=== PATIENT | female | born 1950 | race Caucasian/White ===

== ENCOUNTER → 2023-11-20 14:18 | Outpatient (REF) | payer MEDICARE, OTHER, SELFPAY | LOC: HWRAD 14:18 | PROVIDERS: ATTENDING PHYSICIAN Otolaryngology; FAMILY PHYSICIAN Internal Medicine | DX: E04.0 Nontoxic diffuse goiter (principal) | CPT/HCPCS: 76536 ==

== ENCOUNTER → 2023-11-27 13:00 | Outpatient (REF) | payer MEDICARE, OTHER, SELFPAY ==
[2023-11-27 17:54] LABS: Free T3 3.55 pg/ml (2.77-5.27); Free T4 0.82 ng/dl (0.78-2.19)
[2023-11-27 18:08] LABS: TSH 4.14 uIU/ml (0.47-4.68)
== END ==
LOC: HWLAB 13:00
PROVIDERS: ATTENDING PHYSICIAN Otolaryngology; FAMILY PHYSICIAN Internal Medicine
DX: E04.0 Nontoxic diffuse goiter (principal); E07.9 Disorder of thyroid, unspecified
CPT/HCPCS: 36415; 84439; 84443; 84481

== ENCOUNTER → 2023-12-17 12:16 | Outpatient (REF) | payer MEDICARE, OTHER, SELFPAY | LOC: HWWDC 12:16 | PROVIDERS: ATTENDING PHYSICIAN Internal Medicine | DX: Z12.31 Encounter for screening mammogram for malignant neoplasm of breast (principal) | CPT/HCPCS: 77063; 77067 ==

== ENCOUNTER 2024-02-03 16:04 | Emergency (ER) | payer MEDICARE, OTHER, SELFPAY ==
[2024-02-03 16:09] VITALS: BP 137/74
[2024-02-03 16:36] VITALS: BP 132/73
[2024-02-03 16:38] VITALS: BMI 29.6
--- NOTE | 2024-02-03 16:38 | ED.GENMED ---
History of Present Illness
General
Chief Complaint: Fainting Sensation
Source: patient
Exam Limitations: none
Time Seen by Provider: 02/03/24 16:38
Nursing documentation reviewed up to this point in time: agreed with
Travel History
Have you had any contact with someone who has COVID-19?: No
Do you have any symptoms of coronavirus? Fever > 100 degrees, chills, cough, shortness of breath, sore throat, loss of taste or smell, muscle aches, or headache?: No
History of Present Illness
History of Present Illness:
The patient is a 73-year-old female who reports that earlier this morning, she felt as though she was going to pass out. Patient reports she was driving at this time and had to pan puller. After few minutes, she felt better and was able to drive to
her daughter's house. Patient reports that it is not unusual for her to get low blood pressure from time to time. She denies any new medication adjustments. She reports that she did not have concerns until around 3:15 when she developed pain
across her chest and left jaw area. Patient reports she had been relaxing at the time. Patient reports that it lasted about an hour and is now gone completely. She denies any shortness of breath, nausea, vomiting and fever. Patient reports she
played pickle ball for an hour earlier this morning and felt fine doing it.
Past History
Past History
ED Past Medical History: Arrthythmia (SVT), Cancer (Skin Squamous cell), COPD, CVA, HTN, Hypothyroidism, Psychiatric (Anxiety, Depression) and Other ( Diverticultis, TIA, back pain, migraines)
ED Past Surgical History: Appendectomy, Bowel resection, Cholecystectomy, Gynecological (Total Hysterectomy), Orthopedic (Back surgery X 3, Left shoulder surgery. 2 foot surgery) and Other (Hernia repair)
Social History
Tobacco: Former smoker
Alcohol: Occasional
Personal:
Living: with family
Employment: Employed
Family History
Family History: Other (Father with CABG and carotid disease mother with pancreatic cancer)
Review of Systems
Review of Systems
Allergies reviewed?: Yes
All Other Systems: ROS reviewed and negative except as documented in HPI and ROS
Constitutional: Reports fatigue
EENT: Reports no symptoms
Respiratory: Reports no symptoms
Cardiac: Reports chest pain
ABD/GI: Reports no symptoms
: Reports no symptoms
Musculoskeletal: Reports no symptoms
Skin: Reports no symptoms
Neurological: Reports no symptoms
Endocrine: Reports no symptoms
Hematologic/Lymphatic: Reports no symptoms
Psychiatric: Reports no symptoms
Phy Exam
Physical Exam
Physical Exam:
Physical Exam
General: no apparent distress, not acutely ill, well and comfortable appearing
Neck: supple. no meningeal signs. normal psoterior pharynx
Heart: s1/s2 regular rate and rhythm, no murmur. equal radial pulses. When patient takes a deep breath, she has no reproducible chest pain
Lungs: no acute respiratory distress. clear bilaterally
Abdomen: normal bowel sounds. not tender. no CVAT
Neuro: alert and oriented. no focal neurological deficits
Skin: no rash
Psychiatric: well kept. interactive and cooperative
Extremities: no edema. no calf tenderness. negative homans. good distal pulses
Course
Orders/Labs/Results
Orders:
Orders
02/03/24 16:13
Electrocardiogram (*1) Urgent
Reason for Study: Syncope
EKG- Treatment ONCE
02/03/24 16:55
Complete Blood Count/With Diff Urgent
Comprehensive Metabolic Panel Urgent
Magnesium Urgent
Troponin I Urgent
02/03/24 16:56
Add On- LAB Urgent
Tests Added?: magnesium
02/03/24 17:19
Albuterol Sulfate [Ventolin Nebules] 10 mg INH R NOW STA
02/03/24 17:47
0.9% Sodium Chloride 1000 ml [Nss] 1,000 ml IV BOLUS
02/03/24 18:31
0.9% Sodium Chloride 500 ml [Nss] 500 ml IV BOLUS
02/03/24 19:02
Troponin I Urgent
Abnormal Lab Results
02/03/24
16:55
RBC 4.05 L 10^6/uL
(4.20-5.40)
Hct 35.8 L %
(37.0-47.0)
MCH 32.1 H pg
(27.0-31.0)
Absolute Monos (auto) 0.8 H 10^3/uL
(0.1-0.6)
Monocytes % 11.9 H %
(1.7-9.3)
Sodium 131 L mmol/L
(135-145)
BUN 28 H mg/dl
(7-17)
Creatinine 1.7 H mg/dL
(0.6-1.0)
Calcium 10.8 H mg/dl
(8.4-10.2)
AST 41 H U/L
(14-36)
02/03/24 16:55
02/03/24 16:55
Vital Signs
Initial and Last Documented VS:
Initial Vital Signs
Temp Pulse Resp BP Pulse Ox
98.1 F 83 16 137/74 97
02/03/24 16:09 02/03/24 16:09 02/03/24 16:09 02/03/24 16:09 02/03/24 16:09
Last Documented Vital Signs
Temp Pulse Resp BP Pulse Ox
98.1 F 83 16 146/73 96
02/03/24 16:09 02/03/24 16:09 02/03/24 16:09 02/03/24 19:00 02/03/24 19:00
MDM/Problems Addressed
Differential Diagnosis Includes:
Acute coronary syndrome, PE, musculoskeletal chest pain, gastritis
MDM/Problems Addressed:
Patient presents with acute on chronic lightheadedness and acute chest pain
Chronic conditions affecting care: Arrhythmia
Acute Exacerbation and/or Progression of Chronic Illness: Arrhythmia
*Pulse Oximetry
Patient hypoxic: no
*EKG
Interpreted by ED Provider?: Yes
Interpretation: abnormal
Comparison EKG: no changes
Rate: normal
Rhythm: sinus
Supply: left axis deviation
Interval: long QT
QRS Pattern: left vent hypertrophy
Ischemia: non-specific ST changes
*Reference Archivist Interpretation
Rate: normal
Interpretation: normal
Rhythm: sinus
*Critical Care Note
Total Time (30-74mins, 75-104mins- exclusive of procedures): Not Applicable
Data Reviewed
Review of Other/Old Records Reveals: Discharge Summary (Discharge summary reviewed from 08/2023 which showed that patient was admitted for A-fib)
Source: patient and family
Patient Management
Social determinants of health affecting care: Living situation
Escalation/DeEscalation of care consider admission/obs:
Patient has been resting comfortably for hours without any chest pain. She has 2 normal troponins so it is doubtful she is acute coronary syndrome. There is no sign of pneumonia on lung exam. It is doubtful she has a PE because she has had no
chest pain or shortness of breath here.
ED Attending Note
-
Portions of this chart may have been created with voice recognition software.� Occasional wrong word or��sound alike� substitutions may have occurred due to the inherent limitations of voice recognition software.
Discharge Plan
Departure
Patient Disposition: Home (Routine Discharge)
Date of Disposition: 02/03/24
Time of Disposition: 20:03
Patient with high blood pressure during this ER visit?: Yes
Condition: Good
Covid-19: Not Applicable
Discharge Problem:
acute dehydration, Chest pain in adult
Instructions: Dehydration, Adult ED, Chest Pain DCA Follow Up
Prescriptions:
No Action
lisinopril 5 MG tablet
5 mg PO DAILY
ibuprofen 200 MG tablet
400 mg PO Q6HPRN PRN (Reason: HIP PAIN)
acetaminophen [Tylenol Extra Strength] 500 MG tablet
1,000 mg PO Q6HPRN PRN (Reason: pain, fever)
Centrum Silver Women 1 EACH tablet
1 tab PO DAILY
L.acidoph, paracasei,B. lactis 1 EACH capsule
1 ea PO QPM
albuterol sulfate 90 mcg/actuation Hfa Aerosol Inhaler
1 puff INHALATION Q6H PRN (Reason: dyspnea/wheezing)
fluticasone furoate-vilanterol [Breo Ellipta] 100-25 mcg/dose Blister With Device
1 inh INHALATION DAILY
carvedilol 6.25 mg Tablet
6.25 mg PO BID
trazodone 50 mg Tablet
25 mg PO HS
cetirizine [Zyrtec] 10 mg Tablet
10 mg PO DAILYPRN PRN (Reason: allergies)
famotidine [Pepcid] 20 mg Tablet
20 mg PO DAILYPRN PRN (Reason: GERD)
sertraline 50 mg Tablet
100 mg PO BID
lisinopril 2.5 mg Tablet
2.5 mg PO HS
omega 1-pth-vbs-fish oil [Fish Oil] 1,000 mg (120 mg-180 mg) Capsule
1 cap PO BID
Eliquis 5 mg Tablet
5 mg PO BID
Evert Pro
750 mg PO QPM
L-Glutalthione
250 mg PO QPM
latanoprost 0.005 % Drops
1 drp OPHTHALMIC (EYE) QPM
Referrals:
NONE,* [Family Provider] -
Activity Restrictions/Additional Instructions:
Follow-up with your primary care doctor within 1 - 2 weeks to have your creatinine (kidney blood test) rechecked to make sure it has normalized. The abnormal creatinine could be due to dehydration.
Interventions
Interventions:
*Risk Screen - Suicide Last Done: 02/03/24 16:39
*General Assessment Last Done: 02/03/24 16:39
*Neglect/Abuse Screening Last Done: 02/03/24 19:07
ED- Fall Risk Assessment Last Done: 02/03/24 19:06
*ED COVID-19 Vaccine History Last Done: 02/03/24 16:09
ED- Cardiac Assessment Last Done: 02/03/24 16:39
ED- Neurological Assessment Last Done: 02/03/24 16:39
Discharge Date and Time
Print Language: YI
[2024-02-03 17:05] LABS: % Basophils 0.3 % (0-2); % Eosinophils 0.8 % (0-6); % Immature Granulocytes 0.2 % (0-0.5); % Lymphocytes 25.5 % (20.5-51.1); % Monocytes 11.9 % (1.7-9.3); % Neutrophils 61.3 % (42.2-75.2); Absolute Eosinophils 0.1 10^3/uL (0-0.7); Absolute Lymphocytes 1.7 10^3/uL (1.2-3.4); Absolute Monocytes 0.8 10^3/uL (0.1-0.6); Hematocrit 35.8 % (37.0-47.0); Mean Corp Hgb Conc. 36.3 g/dL (33.0-37.0); Mean Corpuscular Hgb 32.1 pg (27.0-31.0); Mean Corpuscular Volume 88.4 fL (81.0-99.0); Nucleated Red Blood Cells % 0 %; Platelet Count 207 10^3/uL (130-400); Red Blood Cell Count 4.05 10^6/uL (4.20-5.40); Red Cell Dist. Width 12.8 % (11.5-14.5); White Blood Cell Count 6.5 10^3/uL (4.8-10.8)
[2024-02-03 17:20] LABS: ALT (SGPT) 26 U/L (0-35); AST (SGOT) 41 U/L (14-36); Albumin 4.9 g/dl (3.5-5.0); Alkaline Phosphatase 85 U/L (38-126); Blood Urea Nitrogen 28 mg/dl (7-17); Calcium 10.8 mg/dl (8.4-10.2); Carbon Dioxide 23 mmol/L (22-30); Chloride 99 mmol/L (98-107); Estimated Creatinine Clearance 33 ml/min; Glucose 97 mg/dl (70-99); Potassium 5.1 mmol/L (3.5-5.1); Sodium 131 mmol/L (135-145); Total Bilirubin 0.7 mg/dl (0.2-1.3); Total Protein 7.6 g/dl (6.3-8.2); eGFR 31.47
[2024-02-03 17:31] LABS: Troponin I < 0.012 ng/ml
[2024-02-03 17:32] LABS: Magnesium 1.9 mg/dl (1.6-2.3)
[2024-02-03 17:45] VITALS: BP 96/83
[2024-02-03] MEDS: NSS 1000 IV (17:51)
[2024-02-03 18:00] VITALS: BP 134/58
[2024-02-03 19:00] VITALS: BP 146/73
[2024-02-03] MEDS: NSS 500 IV (19:01)
[2024-02-03 19:33] LABS: Troponin I < 0.012 ng/ml
[2024-02-03 20:00] VITALS: BP 142/74
== END 2024-02-03 20:34 | disposition home or self-care (01) ==
LOC: EMR 16:04
PROVIDERS: EMERGENCY PHYSICIAN Emergency Medicine
DX: E86.0 Dehydration (principal); R07.89 Other chest pain; I47.10 Supraventricular tachycardia, unspecified; J44.9 Chronic obstructive pulmonary disease, unspecified; I10 Essential (primary) hypertension; E03.9 Hypothyroidism, unspecified; F41.8 Other specified anxiety disorders; Z85.828 Personal history of other malignant neoplasm of skin; Z86.73 Personal history of transient ischemic attack (TIA), and cerebral infarction without residual deficits; Z87.891 Personal history of nicotine dependence; Z90.49 Acquired absence of other specified parts of digestive tract; Z90.710 Acquired absence of both cervix and uterus
CPT/HCPCS: 99283; 96360; 96361; 80053; 83735; 84484; 85025; 93005

== ENCOUNTER → 2024-02-19 16:10 | Outpatient (REF) | payer MEDICARE, OTHER, SELFPAY | LOC: RAD 16:10 | PROVIDERS: ATTENDING PHYSICIAN Internal Medicine | DX: R05.3 Chronic cough (principal) | CPT/HCPCS: 71046 ==

== ENCOUNTER 2024-05-09 21:42 | Emergency (ER) | payer MEDICARE, OTHER, SELFPAY ==
[2024-05-09 21:44] VITALS: BP 144/80
[2024-05-09 21:59] LABS: % Basophils 0.6 % (0-2); % Eosinophils 1.7 % (0-6); % Immature Granulocytes 0.2 % (0-0.5); % Lymphocytes 40.3 % (20.5-51.1); % Neutrophils 48.2 % (42.2-75.2); Absolute Eosinophils 0.1 10^3/uL (0-0.7); Absolute Lymphocytes 2.1 10^3/uL (1.2-3.4); Absolute Monocytes 0.5 10^3/uL (0.1-0.6); Absolute Neutrophils 2.6 10^3/uL (1.4-6.5); Hematocrit 35.5 % (37.0-47.0); Hemoglobin 12.6 g/dL (12.0-16.0); Mean Corp Hgb Conc. 35.5 g/dL (33.0-37.0); Mean Corpuscular Hgb 31.5 pg (27.0-31.0); Mean Corpuscular Volume 88.8 fL (81.0-99.0); Mean Platelet Volume 9.1 fL (7.4-10.4); Nucleated Red Blood Cells % 0 %; Platelet Count 194 10^3/uL (130-400); White Blood Cell Count 5.3 10^3/uL (4.8-10.8)
[2024-05-09 22:33] LABS: Urine Albumin Negative (Neg - Trace); Urine Bilirubin Negative (Negative); Urine Character Clear (Clear); Urine Color Yellow; Urine Glucose Negative (Negative); Urine Ketone Negative (Negative); Urine Leukocyte Trace (Negative); Urine Nitrite Negative (Negative); Urine Occult Blood Negative (Negative); Urine Specific Gravity 1.005 (<1.030); Urine Urobilinogen Negative (Neg - 1+)
[2024-05-09 22:39] LABS: ALT (SGPT) 28 U/L (0-35); AST (SGOT) 36 U/L (14-36); Albumin 4.5 g/dl (3.5-5.0); Alkaline Phosphatase 71 U/L (38-126); Blood Urea Nitrogen 19 mg/dl (7-17); Calcium 9.7 mg/dl (8.4-10.2); Carbon Dioxide 24 mmol/L (22-30); Chloride 101 mmol/L (98-107); Glucose 107 mg/dl (70-99); Potassium 4.1 mmol/L (3.5-5.1); Sodium 133 mmol/L (135-145); Total Bilirubin 0.4 mg/dl (0.2-1.3); Total Protein 6.7 g/dl (6.3-8.2); eGFR 52.73
[2024-05-09 22:47] LABS: Urine Red Blood Cell 0-2 /HPF (0-2); Urine White Cell 0-2 /HPF (0-5)
[2024-05-10] MEDS: PERCOCET 5/325 1 TABLET PO (00:18)
[2024-05-10 00:19] VITALS: BMI 29.1
[2024-05-10 00:21] VITALS: BP 140/70
--- NOTE | 2024-05-10 01:02 | ED.GENMED ---
History of Present Illness
General
Chief Complaint: Flank Pain
Source: patient
Exam Limitations: none
Time Seen by Provider: 05/10/24 00:00
Nursing documentation reviewed up to this point in time: agreed with
History of Present Illness
History of Present Illness:
Patient presents to ED secondary to persistent left flank pain over the past 3 days. Denies fever or chills. Denies trauma. Denies nausea, vomiting, or diarrhea. Denies loss of appetite. Denies back pain. Denies difficulty urination. Denies
previous history of similar symptoms. However, there is family history of kidney stones.
Past History
Past History
ED Past Medical History: Arrthythmia (SVT), Cancer (Skin Squamous cell), COPD, CVA, HTN, Hypothyroidism, Psychiatric (Anxiety, Depression) and Other ( Diverticultis, TIA, back pain, migraines)
ED Past Surgical History: Appendectomy, Bowel resection, Cholecystectomy, Gynecological (Total Hysterectomy), Orthopedic (Back surgery X 3, Left shoulder surgery. 2 foot surgery) and Other (Hernia repair)
Social History
Tobacco: Former smoker
Alcohol: Occasional
Personal:
Living: with family
Employment: Employed
Family History
Family History: Other (Father with CABG and carotid disease mother with pancreatic cancer)
Review of Systems
Review of Systems
Allergies reviewed?: Yes
All Other Systems: ROS reviewed and negative except as documented in HPI and ROS
Constitutional: Reports no symptoms; Denies fever
ABD/GI: Reports no symptoms; Denies nausea or vomiting
: Reports flank pain; Denies frequency or difficulty voiding
Musculoskeletal: Reports no symptoms
Skin: Reports no symptoms
Neurological: Reports no symptoms
Phy Exam
Physical Exam
Physical Exam:
Physical Exam
General: mild painful distress, not acutely ill. afebrile.
Head: nc/at. eomi
Neck: supple. no meningeal signs.
Heart: s1/s2 regular rate and rhythm, no murmur. equal radial pulses.
Lungs: no acute respiratory distress. clear bilaterally
Abdomen: normal bowel sounds. mild left flank tenderness to palpation. no distention
Back: no cva tenderness.
Neuro: alert and oriented. no focal neurological deficits
Skin: no rash
Psychiatric: well kept. interactive and cooperative
Extremities: no edema. no calf tenderness.
Course
Orders/Labs/Results
Orders:
Orders
05/09/24 21:54
CMP [Comprehensive Metabolic Panel] Urgent
Complete Blood Count/With Diff Urgent
05/09/24 22:26
Urinalysis Urgent
Date Specimen was Collected: 05/09/24
Time Specimen was Collected: 21:47
Urine Microscopic Urgent
Date Specimen was Collected: 05/09/24
Time Specimen was Collected: 21:47
05/10/24 00:17
CT Abd/pel Without Iv Or Oral Urgent
Comment:
Reason For Exam: left flank pain
Oxycodone/Acetaminophen [Percocet 5/325] 1 tablet PO NOW STA
Abnormal Lab Results
05/09/24 05/09/24
21:54 22:26
RBC 4.00 L 10^6/uL
(4.20-5.40)
Hct 35.5 L %
(37.0-47.0)
MCH 31.5 H pg
(27.0-31.0)
Sodium 133 L mmol/L
(135-145)
BUN 19 H mg/dl
(7-17)
Creatinine 1.1 H mg/dL
(0.6-1.0)
Glucose 107 H mg/dl
(70-99)
Ur Leukocyte Esterase Trace A
(Negative)
05/09/24 21:54
05/09/24 21:54
Vital Signs
Initial and Last Documented VS:
Initial Vital Signs
Temp Pulse Resp BP Pulse Ox
97.9 F 82 22 144/80 98
05/09/24 21:44 05/09/24 21:44 05/09/24 21:44 05/09/24 21:44 05/09/24 21:44
Last Documented Vital Signs
Temp Pulse Resp BP Pulse Ox
97.9 F 56 16 141/59 95
05/09/24 21:44 05/10/24 02:44 05/10/24 02:44 05/10/24 02:44 05/10/24 02:44
MDM/Problems Addressed
MDM/Problems Addressed:
Pt with an unremarkable workup in ED, including blood work and CT scan. Pain adequately controlled with medication. Discussed differential diagnosis, including musculoskeletal pain, viral, vs renal colic. Advised rest along with pcp f/u, or return
to ED with worsening symptoms.
*Critical Care Note
Total Time (30-74mins, 75-104mins- exclusive of procedures): Not Applicable
ED Attending Note
-
Portions of this chart may have been created with voice recognition software.� Occasional wrong word or��sound alike� substitutions may have occurred due to the inherent limitations of voice recognition software.
Discharge Plan
Departure
Patient Disposition: Home (Routine Discharge)
Date of Disposition: 05/10/24
Time of Disposition: 02:44
Patient with high blood pressure during this ER visit?: Yes
Condition: Good
Discharge Problem:
Flank pain
Instructions: Flank Pain (DC)
Prescriptions:
New
oxycodone-acetaminophen [Percocet] 5-325 mg Tablet
1 tab PO Q6HPRN PRN (Reason: pain) Qty: 12 0RF
No Action
lisinopril 5 MG tablet
5 mg PO DAILY
ibuprofen 200 MG tablet
400 mg PO Q6HPRN PRN (Reason: HIP PAIN)
acetaminophen [Tylenol Extra Strength] 500 MG tablet
1,000 mg PO Q6HPRN PRN (Reason: pain, fever)
Centrum Silver Women 1 EACH tablet
1 tab PO DAILY
L.acidoph, paracasei,B. lactis 1 EACH capsule
1 ea PO QPM
albuterol sulfate 90 mcg/actuation Hfa Aerosol Inhaler
1 puff INHALATION Q6H PRN (Reason: dyspnea/wheezing)
fluticasone furoate-vilanterol [Breo Ellipta] 100-25 mcg/dose Blister With Device
1 inh INHALATION DAILY
carvedilol 6.25 mg Tablet
6.25 mg PO BID
trazodone 50 mg Tablet
25 mg PO HS
cetirizine [Zyrtec] 10 mg Tablet
10 mg PO DAILYPRN PRN (Reason: allergies)
famotidine [Pepcid] 20 mg Tablet
20 mg PO DAILYPRN PRN (Reason: GERD)
sertraline 50 mg Tablet
100 mg PO BID
lisinopril 2.5 mg Tablet
2.5 mg PO HS
omega 7-rya-nrb-fish oil [Fish Oil] 1,000 mg (120 mg-180 mg) Capsule
1 cap PO BID
Eliquis 5 mg Tablet
5 mg PO BID
Evert Pro
750 mg PO QPM
L-Glutalthione
250 mg PO QPM
latanoprost 0.005 % Drops
1 drp OPHTHALMIC (EYE) QPM
Referrals:
Lisa Hernandez DO [Family Provider] -
Activity Restrictions/Additional Instructions:
As discussed, please follow-up with your primary care physician for reevaluation or consider returning to ED with worsening symptoms, i.e. fever/worsening pain/vomiting. Your prescription has been sent electronically to [facility] in
[place]
Interventions
Interventions:
*Risk Screen - Suicide Last Done: 05/09/24 21:44
*General Assessment Last Done: 05/10/24 00:03
*Neglect/Abuse Screening Last Done: 05/09/24 21:44
ED- Fall Risk Assessment Last Done: 05/10/24 00:02
*ED COVID-19 Vaccine History Last Done: 05/10/24 00:03
*Nursing Disposition Last Done: 05/10/24 02:56
VE-Vilbgp-Dchalmekzc Assessment Last Done: 05/10/24 00:02
ED-Female Genitourinary Assessment Last Done: 05/10/24 00:02
Discharge Date and Time
Discharge Date/Time: 05/10/24 02:56
Print Language: AZERI
[2024-05-10 02:44] VITALS: BP 141/59
== END 2024-05-10 02:56 | disposition home or self-care (01) ==
LOC: EMR 21:42
PROVIDERS: EMERGENCY PHYSICIAN Emergency Medicine; FAMILY PHYSICIAN Family Medicine
DX: R10.9 Unspecified abdominal pain (principal); I47.10 Supraventricular tachycardia, unspecified; J44.9 Chronic obstructive pulmonary disease, unspecified; I10 Essential (primary) hypertension; E03.9 Hypothyroidism, unspecified; F41.8 Other specified anxiety disorders; Z85.828 Personal history of other malignant neoplasm of skin; Z86.73 Personal history of transient ischemic attack (TIA), and cerebral infarction without residual deficits; Z87.891 Personal history of nicotine dependence; Z90.49 Acquired absence of other specified parts of digestive tract; Z90.710 Acquired absence of both cervix and uterus
CPT/HCPCS: 99284; 74176; 80053; 81003; 81015; 85025

== ENCOUNTER → 2024-08-18 11:32 | Outpatient (REF) | payer MEDICARE, OTHER, SELFPAY | LOC: RAD 11:32 | PROVIDERS: ATTENDING PHYSICIAN Nurse Practitioner Family; FAMILY PHYSICIAN Family Medicine | DX: R05.3 Chronic cough (principal) | CPT/HCPCS: 71046 ==

== ENCOUNTER 2024-10-06 13:24 | Emergency (ER) | payer MEDICARE, OTHER, SELFPAY ==
[2024-10-06 13:29] VITALS: BP 168/95
[2024-10-06 13:47] VITALS: BP 151/128
[2024-10-06 13:49] LABS: % Basophils 0.8 % (0-2); % Eosinophils 2.1 % (0-6); % Immature Granulocytes 0.2 % (0-0.5); % Lymphocytes 40.1 % (20.5-51.1); % Monocytes 11.6 % (1.7-9.3); % Neutrophils 45.2 % (42.2-75.2); Absolute Basophils 0.1 10^3/uL (0-0.2); Absolute Eosinophils 0.1 10^3/uL (0-0.7); Absolute Lymphocytes 2.6 10^3/uL (1.2-3.4); Absolute Monocytes 0.8 10^3/uL (0.1-0.6); Hematocrit 39.7 % (37.0-47.0); Mean Corp Hgb Conc. 35.3 g/dL (33.0-37.0); Mean Corpuscular Hgb 32.2 pg (27.0-31.0); Mean Corpuscular Volume 91.3 fL (81.0-99.0); Nucleated Red Blood Cells % 0 %; Platelet Count 268 10^3/uL (130-400); Red Blood Cell Count 4.35 10^6/uL (4.20-5.40); Red Cell Dist. Width 13.6 % (11.5-14.5); White Blood Cell Count 6.6 10^3/uL (4.8-10.8)
--- NOTE | 2024-10-06 14:09 | ED.GENMED ---
History of Present Illness
General
Chief Complaint: Dizziness
Source: patient
Exam Limitations: none
Time Seen by Provider: 10/06/24 14:00
Nursing documentation reviewed up to this point in time: agreed with
History of Present Illness
History of Present Illness:
Patient diagnosed with new onset atrial fibrillation in April 2024, status post cardiac ablation in July 2024, currently on Eliquis with last dose this a.m., presents to ED secondary to 2-day history of 'not feeling well', along with dizziness
and arm/neck pain. Patient states that last time she felt this way was in April when she was diagnosed with atrial fibrillation. Denies chest pain. Denies nausea or vomiting. Denies loss of sensation or weakness. Denies recent change in
medications or diet. Denies recent illness.
Past History
Past History
ED Past Medical History: Arrthythmia (SVT), Cancer (Skin Squamous cell), COPD, CVA, HTN, Hypothyroidism, Psychiatric (Anxiety, Depression) and Other ( Diverticultis, TIA, back pain, migraines)
ED Past Surgical History: Appendectomy, Bowel resection, Cholecystectomy, Gynecological (Total Hysterectomy), Orthopedic (Back surgery X 3, Left shoulder surgery. 2 foot surgery) and Other (Hernia repair)
Social History
Tobacco: Former smoker
Alcohol: Occasional
Personal:
Living: with family
Employment: Employed
Family History
Family History: Other (Father with CABG and carotid disease mother with pancreatic cancer)
Review of Systems
Review of Systems
Allergies reviewed?: Yes
All Other Systems: ROS reviewed and negative except as documented in HPI and ROS
Constitutional: Reports no symptoms
EENT: Reports no symptoms
Respiratory: Reports no symptoms
Cardiac: Reports no symptoms
ABD/GI: Reports no symptoms
: Reports no symptoms
Musculoskeletal: Reports other (arm pain)
Skin: Reports no symptoms
Neurological: Reports dizzy
Phy Exam
Physical Exam
Physical Exam:
Physical Exam
General: mild distress, not acutely ill. afebrile
Head: nc/at. eomi
Neck: supple. normal range of motion.
Heart: irregularly irregular, tachycardic, no murmur. equal radial pulses.
Lungs: no acute respiratory distress. clear bilaterally
Abdomen: normal bowel sounds. not tender.
Neuro: alert and oriented. no focal neurological deficits
Skin: no rash
Psychiatric: well kept. interactive and cooperative
Extremities: no edema. no calf tenderness.
Course
Orders/Labs/Results
Orders:
Orders
10/06/24 13:25
Electrocardiogram (*1) Urgent
Reason for Study: Vertigo / Dizzy
EKG- Treatment ONCE
10/06/24 13:39
Complete Blood Count/With Diff Urgent
Comprehensive Metabolic Panel Urgent
Free T4 Urgent
Magnesium Urgent
TSH Reflex To Free T4 Urgent
Comment: ADD ON
10/06/24 14:07
Add On- LAB Urgent
Tests Added?: magnesium, TSH to reflex Free T4
10/06/24 14:08
0.9% Sodium Chloride 500 ml [Nss] 500 ml IV BOLUS
Diltiazem HCl [Cardizem] 15 mg IV NOW STA
10/06/24 14:15
Diltiazem 125 mg/125 ml Nss [Cardizem] 125 mg in 125 ml IV PER PROTOCOL
Initial dose in mg/hr, then titrate:: 5
Titrate to keep:: Heart rate 80-100 bpm
Titrate by mg/hr:: 5 mg/hr
Frequency of titrations (minutes):: 15
Maximum dose in mg/hr:: 15
Abnormal Lab Results
10/06/24
13:39
MCH 32.2 H pg
(27.0-31.0)
Absolute Monos (auto) 0.8 H 10^3/uL
(0.1-0.6)
Monocytes % 11.6 H %
(1.7-9.3)
Sodium 132 L mmol/L
(135-145)
BUN 23 H mg/dl
(7-17)
Creatinine 1.2 H mg/dL
(0.6-1.0)
ALT 37 H U/L
(0-35)
TSH (Reflex) 5.60 H uIU/ml
(0.47-4.68)
10/06/24 13:39
10/06/24 13:39
Vital Signs
Initial and Last Documented VS:
Initial Vital Signs
Temp Pulse Resp BP Pulse Ox
97.8 F 132 20 168/95 100
10/06/24 13:29 10/06/24 13:29 10/06/24 13:29 10/06/24 13:29 10/06/24 13:29
Last Documented Vital Signs
Temp Pulse Resp BP Pulse Ox
97.8 F 82 19 129/75 95
10/06/24 13:29 10/06/24 15:45 10/06/24 15:45 10/06/24 15:00 10/06/24 15:45
MDM/Problems Addressed
MDM/Problems Addressed:
History and exam consistent with rapid atrial fibrillation. Patient given IV fluids along with Cardizem bolus followed by infusion, with improved heart rate. With decreased heart rate, patient does report improvement overall symptoms. At this
time, discussed with patient and family at bedside, regarding treatment options, including increasing medication, carvedilol with outpatient follow-up with her primary transportation director, as study has shown that patients do convert spontaneously as an
outpatient after medication adjustment versus cardioversion in ED. After discussing risks involved with cardioversion, i.e. sedation, patient would like to be discharged home with medication adjustment. Patient will follow-up with her primary
transportation director, Dr. Whalen. Advised return to ED with worsening symptoms, i.e. dizziness/chest pain/nausea/vomiting.
Critical care statement: A total of 40 minutes of critical care time was provided for this patient. This includes management of unstable vital signs, evaluation of the patient at bedside, reviewing the patient's pertinent medical records, review of
old EKGs and review of pertinent medical records. This time with separate from time utilized to perform the aforementioned documented procedures
*Critical Care Note
Total Time (30-74mins, 75-104mins- exclusive of procedures): 40 min
ED Attending Note
-
Portions of this chart may have been created with voice recognition software.� Occasional wrong word or��sound alike� substitutions may have occurred due to the inherent limitations of voice recognition software.
Discharge Plan
Departure
Patient Disposition: Home (Routine Discharge)
Date of Disposition: 10/06/24
Time of Disposition: 15:49
Patient with high blood pressure during this ER visit?: Yes
Discharge Problem:
Atrial fibrillation
Instructions: Atrial fibrillation - Discharge instructions
Prescriptions:
No Action
lisinopril 5 MG tablet
5 mg PO DAILY
ibuprofen 200 MG tablet
400 mg PO Q6HPRN PRN (Reason: HIP PAIN)
acetaminophen [Tylenol Extra Strength] 500 MG tablet
1,000 mg PO Q6HPRN PRN (Reason: pain, fever)
Centrum Silver Women 1 EACH tablet
1 tab PO DAILY
L.acidoph,paracasei,B.animalis 1 EACH capsule
1 ea PO QPM
albuterol sulfate 90 mcg/actuation Hfa Aerosol Inhaler
1 puff INHALATION Q6H PRN (Reason: dyspnea/wheezing)
fluticasone furoate-vilanterol [Breo Ellipta] 100-25 mcg/dose Blister With Device
1 inh INHALATION DAILY
carvedilol 6.25 mg Tablet
6.25 mg PO BID
trazodone 50 mg Tablet
25 mg PO HS
cetirizine [Zyrtec] 10 mg Tablet
10 mg PO DAILYPRN PRN (Reason: allergies)
famotidine [Pepcid] 20 mg Tablet
20 mg PO DAILYPRN PRN (Reason: GERD)
sertraline 50 mg Tablet
100 mg PO BID
lisinopril 2.5 mg Tablet
2.5 mg PO HS
omega 1-glv-ggi-fish oil [Fish Oil] 1,000 mg (120 mg-180 mg) Capsule
1 cap PO BID
Eliquis 5 mg Tablet
5 mg PO BID
Evert Pro
750 mg PO QPM
L-Glutalthione
250 mg PO QPM
latanoprost 0.005 % Drops
1 drp OPHTHALMIC (EYE) QPM
oxycodone-acetaminophen [Percocet] 5-325 mg Tablet
1 tab PO Q6HPRN PRN (Reason: pain) Qty: 12 0RF
Referrals:
Lisa Hernandez DO [Family Provider] -
Meron Whalen MD [Active] -
Activity Restrictions/Additional Instructions:
As discussed, please follow-up with your transportation director for further evaluation and treatment. In the meantime, please increase carvedilol to 25 mg twice daily. Please consider return to ED with significantly worsening symptoms.
Interventions
Interventions:
*Risk Screen - Suicide Last Done: 10/06/24 13:29
*General Assessment Last Done: 10/06/24 13:29
*Neglect/Abuse Screening Last Done: 10/06/24 13:29
ED- Fall Risk Assessment Last Done: 10/06/24 13:44
*Nursing Disposition Last Done: 10/06/24 15:54
ED- Neurological Assessment Last Done: 10/06/24 13:44
ED- Cardiac Assessment Last Done: 10/06/24 13:44
Discharge Date and Time
Print Language: MEXICAN
[2024-10-06] MEDS: NSS 500 IV (14:15)
[2024-10-06] MEDS: CARDIZEM 125 IV (14:15)
[2024-10-06] MEDS: CARDIZEM 15 MG IV (14:15)
[2024-10-06 14:19] LABS: ALT (SGPT) 37 U/L (0-35); AST (SGOT) 35 U/L (14-36); Albumin 4.6 g/dl (3.5-5.0); Alkaline Phosphatase 82 U/L (38-126); Blood Urea Nitrogen 23 mg/dl (7-17); Calcium 9.5 mg/dl (8.4-10.2); Carbon Dioxide 23 mmol/L (22-30); Chloride 98 mmol/L (98-107); Glucose 98 mg/dl (70-99); Potassium 4.6 mmol/L (3.5-5.1); Sodium 132 mmol/L (135-145); Total Bilirubin 0.7 mg/dl (0.2-1.3)
[2024-10-06 14:21] VITALS: BP 115/67
[2024-10-06 15:00] VITALS: BP 129/75
[2024-10-06 15:30] LABS: Magnesium 1.8 mg/dl (1.6-2.3)
[2024-10-06 16:27] LABS: Free T4 1.09 ng/dl (0.78-2.19)
== END 2024-10-06 16:58 | disposition home or self-care (01) ==
LOC: EMR 13:24
PROVIDERS: Emergency Medicine; EMERGENCY PHYSICIAN Emergency Medicine; FAMILY PHYSICIAN Family Medicine
DX: I48.91 Unspecified atrial fibrillation (principal); R42 Dizziness and giddiness; M54.2 Cervicalgia; I47.10 Supraventricular tachycardia, unspecified; J44.9 Chronic obstructive pulmonary disease, unspecified; I10 Essential (primary) hypertension; E03.9 Hypothyroidism, unspecified; F41.8 Other specified anxiety disorders; Z79.01 Long term (current) use of anticoagulants; Z85.828 Personal history of other malignant neoplasm of skin; Z86.73 Personal history of transient ischemic attack (TIA), and cerebral infarction without residual deficits; Z87.891 Personal history of nicotine dependence; Z90.49 Acquired absence of other specified parts of digestive tract; Z90.710 Acquired absence of both cervix and uterus
CPT/HCPCS: 99283; 96374; 96376; 96361; 80053; 83735; 84439; 84443; 85025; 93005

== ENCOUNTER 2024-10-08 07:06 | Day surgery (SDC) | payer MEDICARE, OTHER, SELFPAY ==
--- NOTE | 2024-10-08 09:52 | ITS.CL.CARDI ---
Button Grader - Cardioversion
Cardioversion
Procedure Report:
Procedure: Direct current electrical cardioversion
Pre-operative diagnosis: Persistent atrial fibrillation
Post-operative diagnosis: Persistent atrial fibrillation status post DC cardioversion to sinus rhythm
Anesthesia: MAC
Attending Physician: López Salmeron MD
Procedure Description: The patient was brought to the electrophysiology laboratory in the fasting state. Adherence to anticoagulation regimen was confirmed. Informed consent was obtained from the patient prior to the start of the procedure.
Electrodes were placed on the patient and connected to an external defibrillator. Monitoring of blood pressure, ECG tracings, and pulse oximetry was initiated. The pads were applied to the patient in the anterior and posterior positions. The patient
was sedated by the anesthesiologist. A 200 joule biphasic synchronized shock was delivered to the patient under MAC anesthesia. Sinus rhythm was successfully restored. The patient recovered uneventfully from MAC anesthesia. There were no immediate
post-procedure complications. The patient left the lab in good condition. The attending physician was present throughout the entire procedure.
Impression: Successful direct current cardioversion with gnosticist of sinus rhythm after one 200 joule biphasic synchronized shock.
== END 2024-10-08 10:05 | disposition home or self-care (01) ==
LOC: CATH 07:06
PROVIDERS: ATTENDING PHYSICIAN Internal Medicine Cardiovascular Disease; FAMILY PHYSICIAN Family Medicine; OTHER PHYSICIAN Internal Medicine Interventional Cardiology
DX: I48.19 Other persistent atrial fibrillation (principal); I47.10 Supraventricular tachycardia, unspecified; I11.0 Hypertensive heart disease with heart failure; I50.32 Chronic diastolic (congestive) heart failure; E03.9 Hypothyroidism, unspecified; Z87.891 Personal history of nicotine dependence; Z79.01 Long term (current) use of anticoagulants
CPT/HCPCS: 92960; 93005

== ENCOUNTER 2024-12-06 08:30 | Day surgery (SDC) | payer MEDICARE, OTHER, SELFPAY ==
[2024-11-30 12:17] VITALS: BMI 32.1
[2024-12-06] VITALS (16 sets, daily range): BP systolic 106–155; BP diastolic 52–78; BMI 32.1
[2024-12-06 11:21] LABS: ACT-LR - POC 335 Seconds (116-155)
[2024-12-06 11:41] LABS: ACT-LR - POC 397 Seconds (116-155)
[2024-12-06 12:00] LABS: ACT-LR - POC 353 Seconds (116-155)
--- NOTE | 2024-12-06 13:10 | ITS.CL.ABL ---
[employer] Recovery - Ablation
Ablation
Procedure Report:
ELECTROPHYSIOLOGIC STUDY AND POSSIBLE ABLATION
DATE: December 06, 2024
PCP: Dr Kelly Hernandez
Primary Bowling Floor Manager:Dr Loki Whalen
INDICATION:
Symptomatic Atrial Fibrillation.
Paroxysmal. Recurrent after Cryo ablation 2022
HISTORY: See H and P.
Symptomatic AF, poorly controlled with attempted medical therapy
HAS-BLED: 2
Age
NSAIDS
CHADSVASc: 3
HTN
Age
F Gender
PRESENTING RHYTHM: SR
HISTORY: See H and P.
Symptomatic AF, poorly controlled with attempted medical therapy.
ANTICOAGULATION: apixaban 5 mg BID
'TIME-OUT': called and confirmed.
SEDATION/ANESTHESIA: provided via the anesthesia department using general anesthesia.
PROCEDURE:
Ultrasound Guidance with real-time visualization of needle insertion and vessel patency performed by me for femoral venous Vascular Access. Images were taken and saved for the patient's permanent record. Imaging findings typical femoral venous
anatomy. Direct visualization of needle puncture into the femoral vein was observed and recorded.
A decapolar CS catheter was placed within the CS for mapping and pacing.
The intracardiac ultrasound catheter was positioned in the RA for continuous intracardiac ultrasound imaging.
Heparin bolus and infusion to target ACT at 300 -350 seconds was administered. Transseptal puncture was performed. This entailed advancing a sheath with dilator into the superior vena cava and withdrawing both (monitoring intracardiac ultrasound,
fluoroscopy and tip pressure) with the tip oriented toward the atrial septum. The fossa ovalis was engaged (indicated by sudden displacement of the sheath tip as well as tenting of the fossa seen on intracardiac ultrasound).
Transseptal puncture was performed. Left atrial catheter position was confirmed by echocardiographic imaging, pressure monitoring (LA mean pressure 8 mm Hg) and fluoroscopy. The sheath was advanced over the dilator and positioned in the left
atrium.
The [employer] multipolar mapping/ablation Sphere-9 catheter was positioned through the transseptal sheath for high density mapping.
Geometry and voltage mapping was performed using the [employer] mapping system for three-dimensional electroanatomical mapping.
Catheter positioning was guided and confirmed using both I.C.E. and fluoroscopy.
There are 4 pulmonary veins, LSPV, LIPV, RSPV, RIPV.
Mapping finds reconnection of the right superior pulmonary vein at its anterior superior quadrant.
Additional mapping finds fractionated electrograms in sinus rhythm along the posterior wall of the left atrium towards the antrum of the left sided pulmonary veins and also at the radha between the right superior and right inferior pulmonary vein.
Ablation strategy included reisolation of the pulmonary veins and additional ablation lesion sets to electrically isolate the antrum's around the pulmonary veins and the entire posterior wall of the left atrium.
PV isolation approach was used to electrically isolate each PV ostia (LSPV, LIPV, RSPV, RIPV).
Additional energy applications/additional ablation set was required to accomplish wide area circumferential ablation around each of the pulmonary vein sets and additionally ablation to accomplish LA posterior wall ablation.
Remapping with the Sphere-9 catheter found that all PVPs were eliminated at each vein demonstrating entrance block. Also pacing around the the circumference of the ostia was performed at 10 ma and 2.0 msec output to assess for exit block. This
demonstrated electrical isolation at each of the pulmonary vein ostia (LSPV, LIPV, RSPV, RIPV). There is also entrance and exit block at the LA posterior wall.
Programmed electrostimulation failed to induce any sustained arrhythmias.
I.C.E. :
Pre-Ablation Post-Ablation
LVEF: 50 % 50 %
WMA: none none
Pericardial effusion: none none
COMPLICATIONS:
During the procedure there is transient hypotension noted. This was at the end of the procedure after the pulmonary veins and posterior wall had already been electrically isolated with ablation. Intracardiac echocardiogram demonstrated no
pericardial effusion. IV pressors were used to support blood pressure but there was also concern that the hypotension was an error from the blood pressure cuff. Repositioning of the blood pressure cuff (after IV pressors administered by
anesthesia) demonstrated hypertension and it was felt that the hypotension was at least in part related to an error from the blood pressure cuff. During this period of hypotension there are no acute EKG changes. There is no ST segment elevation or
depression and no T wave inversions. During this hypotensive episode while echocardiogram showed no pericardial effusion there was transient global left ventricular systolic dysfunction noted. All and all her hypotension was likely not as severe
as initially thought and this is related to an error from the blood pressure cuff but it is possible she was transiently hypotensive with transient global LV systolic dysfunction which resolved by the end of the case. Etiology may include micro air
emboli although there is no ST changes on EKG which would be rather unlikely if air emboli were the etiology.
Once the blood pressure cuff was repositioned she was no longer hypotensive no further pressures were given she remained normotensive. The procedure was completed and she was successfully extubated with no neurologic deficits.
SUMMARY:
- Mapping and ablation to isolate the PVs
- Additional AF ablation set after PVI.
- 3-D Electroanatomical Mapping
- Intracardiac Ultrasound
- Ultrasound guidance for vascular access
Post ablation, I discussed today's findings and results with the patient's , Caleb.
RECOMMENDATIONS:
- Observe in monitored bed.
Given the transient hypotensive episode with unclear etiology, will observe overnight.
- Maintain oral anticoagulation.
- Continue cardiovascular care with Dr Whalen
Copy to:
Dr Kelly Hernandez
Dr Loki Whalen
[2024-12-06] MEDS: SUBLIMAZE 25 MCG IV (14:25)
--- NOTE | 2024-12-06 16:36 | PTCARENOTE ---
figure of 8 suture removed. pt tolerated well. dressing is cdi. call salazar within reach.
--- NOTE | 2024-12-06 16:46 | CM ---
Chart reviewed. Patient is independent of ADLS, lives with her in a 2 [address], 4 [facility], 0 DME. Plan is for the patient to return home. CM to follow
--- NOTE | 2024-12-06 18:00 | PTCARENOTE ---
pt is sr w/ a first degree av, hr in the 80s, vss. pt offers no complaints at this time. pt oob to br and tolerated well. right groin is cdi. pt c/o of back pain but doing better since able to walk around. pt educated on plan of care and tolerated
well. call salazar within reach.
[2024-12-06] MEDS: ELIQUIS 5 MG PO (20:49)
[2024-12-06] MEDS: COREG 6.25 MG PO (20:49)
[2024-12-06] MEDS: PEPCID 20 MG PO (22:43)
[2024-12-06] MEDS: XALATAN OPHTHALMIC SOLUTION 1 DROP OPHTH (22:43)
[2024-12-06] MEDS: DESYREL 25 MG PO (22:44)
[2024-12-06] MEDS: TYLENOL 650 MG PO (22:44)
[2024-12-06] MEDS: ZOLOFT 100 MG PO (22:44)
[2024-12-07 03:31] VITALS: BP 135/68
[2024-12-07 03:41] VITALS: BMI 31.9
[2024-12-07 04:02] LABS: Hematocrit 31.3 % (37.0-47.0); Hemoglobin 11.2 g/dL (12.0-16.0); Mean Corp Hgb Conc. 35.8 g/dL (33.0-37.0); Mean Corpuscular Hgb 32.3 pg (27.0-31.0); Mean Corpuscular Volume 90.2 fL (81.0-99.0); Mean Platelet Volume 9.3 fL (7.4-10.4); Platelet Count 183 10^3/uL (130-400); Red Blood Cell Count 3.47 10^6/uL (4.20-5.40); Red Cell Dist. Width 13.2 % (11.5-14.5); White Blood Cell Count 5.4 10^3/uL (4.8-10.8)
[2024-12-07 04:25] LABS: Blood Urea Nitrogen 16 mg/dl (7-17); Calcium 9.3 mg/dl (8.4-10.2); Carbon Dioxide 21 mmol/L (22-30); Chloride 103 mmol/L (98-107); Estimated Creatinine Clearance 60 ml/min; Glucose 117 mg/dl (70-99); Potassium 4.4 mmol/L (3.5-5.1); Sodium 133 mmol/L (135-145); eGFR > 60.00
--- NOTE | 2024-12-07 07:27 | W.PN.CARDCBS ---
Addendum entered and electronically signed by LEAH Valdez 12/07/24 11:37:
Echo 12/07/34-
CONCLUSIONS
1. Mild concentric left ventricular hypertrophy with preserved systolic
function, EF 56%
2. Thickened mitral leaflets, mitral annular calcification, mild to moderate
mitral regurgitation and dilated left atrium
3. Aortic sclerosis with mild aortic regurgitation
4. Dilated right ventricle with preserved systolic function, mild tricuspid
regurgitation and pulmonary artery systolic pressure 30-35 mmHg
No effusion.
Stable for discharge.
Original Note:
Today's Communication / Plan
-
followup echo today
continue eliquis
followup w/Dr. Whalen
Impression / Plan
-
PCP: Lisa Hernandez DO
CDY: Loki Whalen MD
74 y/o, PMH sig for AFib with prior PVI 08/2023, now recurrent and symptomatic, cardioverted Sep 2022. [id number], maintained on eliquis.
Now s/p PFA. Procedure complicated by transient hypotension, treated with IV pressors. Intracardiac echo with no pericardial effusion but transient global LV systolic dysfunction was noted. There were no ST segment elevation/depressions or TW
inversions. It was felt in part d/t BP cuff error/positioning, however it is possible she did have hypotension w/transient LV systolic dysfunction. All of this resolved by the end of the case. Etiology may include micro air emboli but no ST changes
make this unlikely.
IMPRESSION:
AFib, prior PVI (08/2023)
S/P PFA, 12/06/24
Intraop transient hypotension w/global LV dysfunction, resolved
TIA (2011)
Chronic diastolic HFpEF, 55%
HTN
HLD
Migraine
Diverticulosis, s/p bowel resection (2013)
Thyroid nodule, s/p biopsy
PLAN:
Tele- NSR 60-70s w/1st deg AVB as before
groin site stable
oob ambulating
echo followup study today
resume eliquis
continue carvedilol, lisinopril
likely d/c today after echo results
followup with Dr. Whalen as scheduled
Progress Note - Sales Development Associate
Subjective
Date of Service: December 07, 2024
Denies cp/palps/dyspnea
oob ambulating
groin site without pain
Objective
Labs:
12/07/24 03:38
12/07/24 03:38
Labs
Hgb 11.2 g/dL (12.0-16.0) L 12/07/24 03:38
Hct 31.3 % (37.0-47.0) L 12/07/24 03:38
Plt Count 183 10^3/uL (130-400) 12/07/24 03:38
Sodium 133 mmol/L (135-145) L 12/07/24 03:38
Potassium 4.4 mmol/L (3.5-5.1) 12/07/24 03:38
BUN 16 mg/dl (7-17) 12/07/24 03:38
Creatinine 0.9 mg/dL (0.6-1.0) 12/07/24 03:38
Glucose 117 mg/dl (70-99) H 12/07/24 03:38
Vital Signs and I&O:
Vital Signs
Temp Pulse Resp BP Pulse Ox
98.7 F 65 16 135/68 95
12/07/24 03:30 12/07/24 06:15 12/07/24 03:30 12/07/24 03:31 12/07/24 03:30
Vital Signs
Temp Pulse Resp BP Pulse Ox
98.7 F 65 16 135/68 95
12/07/24 03:30 12/07/24 06:15 12/07/24 03:30 12/07/24 03:31 12/07/24 03:30
Intake & Output
12/05/24 12/06/24 12/07/24 12/08/24
06:59 06:59 06:59 06:59
Intake Total 2079
Balance 2079
Physical Exam
Physical Exam
AAOx3, MAEE 5/5
RRR S1 S2 no murmurs
CTA bilat, non labored
soft abd,+ bs
right groin site without ht/bleeding, non tender
bilat extremities w/palpable distal pulses, no edema
[2024-12-07 08:01] VITALS: BP 143/67
[2024-12-07] MEDS: COREG 6.25 MG PO (08:12)
[2024-12-07] MEDS: ZESTRIL 5 MG PO (08:12)
[2024-12-07] MEDS: ELIQUIS 5 MG PO (08:12)
[2024-12-07 12:15] VITALS: BP 135/64
--- NOTE | 2024-12-07 13:01 | PTCARENOTE ---
Pt received this am oob ad emily. Denies any pain or sob. SR, rate in the 60's to 80's. Right groin site WNL. Pt discharged to home with her daughter. Discharge instructions given and reviewed with full understanding and all questions answered.
--- NOTE | 2024-12-07 13:07 | W.DS.TRANS ---
DC Summary - [employer]
-
Discharge Instructions:
Sleep Apnea Risk Low
Discharge Diagnosis/Procedures AFib, s/p ablation
Diet Low Cholesterol
Driving Restrictions No driving for 24 hours
Instructions:
Stand-Alone Forms: DC Instructions- Cath/EP Lab
Changes to Home Medications: No
Discharge Medications:
DC Medications w/original date entered in [employer]
lisinopril 5 mg tablet 5 mg PO DAILY 02/19/19
apixaban 5 mg tablet (Eliquis) 5 mg PO BID 08/20/23
carvedilol 6.25 mg tablet 6.25 mg PO BID 08/20/23
cetirizine 10 mg tablet (Zyrtec) 10 mg PO DAILYPRN PRN allergies 08/20/23
famotidine 20 mg tablet (Pepcid) 20 mg PO HS 08/20/23
trazodone 50 mg tablet 25 mg PO HS 08/20/23
Curapro 1 tab PO DAILY 11/25/24
fluticasone furoate 200 mcg-vilanterol 25 mcg/dose inhalation powder (Breo Ellipta) 1 inh inhalation HS 11/25/24
fluticasone propionate 50 mcg/actuation nasal spray,suspension 2 spray intranasal DAILYPRN PRN allergies 11/25/24
glutathione 500 mg capsule 250 mg PO HS 11/25/24
lactobacillus combination no.4 3 billion cell capsule (Probiotic) 3,000 mmu cells PO HS 11/25/24
latanoprost 0.005 % eye drops 1 drp ophthalmic (eye) HS 11/25/24
multivitamin 1 tab PO DAILY 11/25/24
omega [id number]-fish oil 1,000 mg (120 mg-180 mg) capsule (Fish Oil) 1 cap PO BID 11/25/24
sertraline 100 mg tablet 100 mg PO HS 11/25/24
Home Medication Changes
Pending Results: No
== END 2024-12-07 12:10 | disposition home or self-care (01) ==
LOC: CATH 08:30
PROVIDERS: Nurse Practitioner; ATTENDING PHYSICIAN Internal Medicine Cardiovascular Disease; FAMILY PHYSICIAN Family Medicine; OTHER PHYSICIAN Internal Medicine Interventional Cardiology
DX: I48.0 Paroxysmal atrial fibrillation (principal); I47.10 Supraventricular tachycardia, unspecified; I13.0 Hypertensive heart and chronic kidney disease with heart failure and stage 1 through stage 4 chronic kidney disease, or unspecified chronic kidney disease; N18.30 Chronic kidney disease, stage 3 unspecified; I50.32 Chronic diastolic (congestive) heart failure; G47.33 Obstructive sleep apnea (adult) (pediatric); J44.9 Chronic obstructive pulmonary disease, unspecified; I08.3 Combined rheumatic disorders of mitral, aortic and tricuspid valves; I44.0 Atrioventricular block, first degree; I44.4 Left anterior fascicular block; E78.5 Hyperlipidemia, unspecified; K21.9 Gastro-esophageal reflux disease without esophagitis; G43.909 Migraine, unspecified, not intractable, without status migrainosus; G47.00 Insomnia, unspecified; Z87.891 Personal history of nicotine dependence; Z86.73 Personal history of transient ischemic attack (TIA), and cerebral infarction without residual deficits; Z79.01 Long term (current) use of anticoagulants
CPT/HCPCS: C1894; C1769; C1892; C1766; C1730; C1733; 76937; 80048; 83735; 85027; 85347; 93005; 93306; 93656; 93657

== ENCOUNTER → 2024-12-29 07:06 | Outpatient (REF) | payer MEDICARE, OTHER, SELFPAY | LOC: PAVMRI 07:06 | PROVIDERS: ATTENDING PHYSICIAN Family Medicine | DX: M54.16 Radiculopathy, lumbar region (principal) | CPT/HCPCS: 72148 ==

== ENCOUNTER → 2024-12-31 14:29 | Outpatient (REF) | payer MEDICARE, OTHER, SELFPAY | LOC: HWRAD 14:29 | PROVIDERS: ATTENDING PHYSICIAN Otolaryngology; FAMILY PHYSICIAN Family Medicine | DX: E04.0 Nontoxic diffuse goiter (principal) | CPT/HCPCS: 76536 ==

== ENCOUNTER → 2025-01-06 08:55 | Outpatient (REF) | payer MEDICARE, OTHER, SELFPAY ==
[2025-01-06 12:10] LABS: Free T4 0.88 ng/dl (0.78-2.19)
[2025-01-06 13:01] LABS: Free T3 3.52 pg/ml (2.77-5.27)
== END ==
LOC: HWLAB 08:55
PROVIDERS: ATTENDING PHYSICIAN Otolaryngology; FAMILY PHYSICIAN Family Medicine
DX: E04.0 Nontoxic diffuse goiter (principal); E07.9 Disorder of thyroid, unspecified
CPT/HCPCS: 36415; 84439; 84443; 84481

== ENCOUNTER → 2025-01-25 07:59 | Outpatient (REF) | payer MEDICARE, OTHER, SELFPAY | LOC: HWWDC 07:59 | PROVIDERS: ATTENDING PHYSICIAN Family Medicine | DX: Z12.31 Encounter for screening mammogram for malignant neoplasm of breast (principal); M85.859 Other specified disorders of bone density and structure, unspecified thigh; M85.89 Other specified disorders of bone density and structure, multiple sites | CPT/HCPCS: 77063; 77067; 77080 ==

== ENCOUNTER → 2025-07-26 16:17 | Outpatient (REF) | payer MEDICARE, OTHER, SELFPAY | LOC: RAD 16:17 | PROVIDERS: ATTENDING PHYSICIAN Family Medicine | DX: J42 Unspecified chronic bronchitis (principal); J44.9 Chronic obstructive pulmonary disease, unspecified | CPT/HCPCS: 71046 ==